=== PATIENT | male | born 1955 | race African-American/Black ===

== ENCOUNTER 2019-08-15 05:43 | Inpatient (IN) | payer BC ==
[2019-08-05 12:07] VITALS: BMI 35.0
[~2019-08-15 05:43] MED LIST: CELECOXIB 200 MG CAPSULE PO ONE; PANTOPRAZOLE 40 MG TABLET (FP) PO ONE; TRANEXAMIC ACID 1000 MG/10 ML VIAL IVPUSH ONE; oxyCODONE HCL 10 MG SUSTAINED ACTING TABLET PO ONE
[2019-08-15] MEDS ORDERED: ONDANSETRON 4 MG/2 ML VIAL IVPUSH PRN ×2 (07:04→11:54)
[2019-08-15] MEDS ORDERED: LACTATED RINGERS SOLUTION 1,000 ML IV SCH ×2 (07:15→12:00)
[2019-08-15] MEDS ORDERED: MIDAZOLAM HCL 2 MG/2 ML SINGLE DOSE VIAL ONE ×3 (07:16→11:57)
[2019-08-15] MEDS ORDERED: DEXAMETHASONE SOD PHOSPHATE/PF 10 MG/ML SDV ONE (07:16)
[2019-08-15] MEDS ORDERED: ceFAZolin SODIUM 1 GM VIAL ONE ×2 (07:19→07:33)
[2019-08-15] MEDS ORDERED: VANCOMYCIN 1,000 MG VIAL (RESTRICTED TO ID ONLY) ONE (07:19)
[2019-08-15] MEDS ORDERED: PROPOFOL 20 ML ONE ×4 (07:30→10:57)
[2019-08-15] MEDS ORDERED: LIDOCAINE HCL/PF 2% SDV 5ML VIAL ONE (07:33)
--- NOTE | 2019-08-15 07:49 | HP ---
Admitting History and Physical - Admission Chief Complaint: Left hip osteoarthritis x years History of Present Illness: 64 year old male presents in regard to his left hip. Longstanding history of left hip osteoarthritis. Patient complains of pain, limited ROM, difficulty ambulating and difficulty completing ADLs. Patient has failed conservative treatment measures including PO medications, injections, activity modification and exercise programs. At this point, patient would like to proceed with surgical intervention - left total hip arthroplasty, MAKOplasty. History Source: Patient - Past Medical History Cardiovascular: Yes: HTN Musculoskeletal: Yes: Osteoarthritis - Past Surgical History Additional Past Surgical History: See written history & physical. - Smoking History Smoking history: Never smoked Have you smoked in the past 12 months: No - Alcohol/Substance Use Hx Alcohol Use: Yes (FEW TIMES PER WEEK) Home Medications - Allergies Allergies/Adverse Reactions: Allergies Allergy/AdvReac Type Severity Reaction Status Date / Time codeine AdvReac Intermediate Rash Verified 07/31/19 17:37 - Home Medications Home Medications: Ambulatory Orders Amlodipine Besylate 5 mg PO DAILY 07/31/19 Diclofenac Sodium 75 mg PO BID 07/31/19 Review of Systems - Review of Systems Musculoskeletal: reports: Decreased ROM (left hip), Joint Pain (left hip) Physical Examination Vital Signs: Vital Signs Temperature 97.8 F 08/15/19 07:00 Pulse Rate 65 08/15/19 07:00 Respiratory Rate 16 08/15/19 07:00 Blood Pressure 144/65 08/15/19 07:00 O2 Sat by Pulse Oximetry (%) 99 08/15/19 07:00 Constitutional: Yes: Well Nourished, No Distress Eyes: Yes: Conjunctiva Clear HENT: Yes: Atraumatic Neck: Yes: Supple Cardiovascular: Yes: Regular Rate and Rhythm Respiratory: Yes: Regular Gastrointestinal: Yes: Soft ...Rectal Exam: Yes: Deferred Musculoskeletal: Yes: Joint Stiffness (left hip), Other (limited ROM left hip) Assessment/Plan 64 year old male presents in regard to his left hip. Longstanding history of left hip osteoarthritis. Patient complains of pain, limited ROM, difficulty ambulating and difficulty completing ADLs. Radiographs reveal severe osteoarthritis of his left hip. Patient has failed conservative treatment measures including PO medications, injections, activity modification and exercise programs. At this point, patient would like to proceed with surgical intervention - left total hip arthroplasty, MAKOplasty. Pros, cons, risks, benefits and alternatives of a left total hip arthroplasty, MAKOplasty was discussed with the patient at length. Patient confirms his understanding and consents to proceed with a left total hip arthoplasty, MAKOplasty.
[2019-08-15] MEDS ORDERED: CEFAZOLIN 2 GM in DEXTROSE 5%-WATER - 50 ML IVPB ONE (08:00)
[2019-08-15] MEDS ORDERED: BUPIVICAINE 0.25%/MORPH PF/KETOROLAC - 51ML DISP.SYRINGE IA ONE ×2 (08:00→10:30)
[2019-08-15] MEDS ORDERED: PHENYLEPHRINE HCL 10 MG/1 ML SINGLE DOSE VIAL ONE (08:58)
[2019-08-15] MEDS ORDERED: ePHEDrine SULFATE 50 MG/1 ML AMPULE ONE (09:26)
[2019-08-15] MEDS ORDERED: KETOROLAC TROMETHAMINE 30 MG/1 ML VIAL ONE (10:48)
[2019-08-15] MEDS ORDERED: ACETAMINOPHEN INJECTION 100 ML IVPB ONE (11:15)
[2019-08-15] MEDS ORDERED: HYDROmorphone HCL CARPU-JECT 1 MG/1 ML DISP.SYRIN IVPUSH PRN (11:49)
--- NOTE | 2019-08-15 11:53 | OP ---
Operative Note - Note: Operative Date: 08/15/19 Pre-Operative Diagnosis: left hip OA Operation: left NICOLE WILLIAM Post-Operative Diagnosis: Same as Pre-op Surgeon: Dio Toro [employer] Prevention Specialist: Erendira Padilla Anesthesia: Spinal Estimated Blood Loss (mls): 250
[2019-08-15] MEDS ORDERED: MAG HYDROX/AL HYDROX/SIMETH 30 ML UNIT-DOSE CUP PO PRN (11:54)
[2019-08-15] MEDS ORDERED: MAGNESIUM HYDROX 2400MG/30ML ORAL SUSPENSION 30 ML CUP PO PRN (11:54)
[2019-08-15] MEDS ORDERED: ACETAMINOPHEN 1000 MG/100 ML VIAL (NON FORMULARY) IVPB ONE ×2 (11:57→12:00)
[2019-08-15] MEDS: MIDAZOLAM HCL 2 MG/2 ML SINGLE DOSE VIAL IVPUSH PRN ×2 (11:58→12:14)
[2019-08-15] MEDS ORDERED: KETOROLAC TROMETHAMINE 30 MG/1 ML VIAL IVPUSH SCH (12:00)
[2019-08-15] MEDS ORDERED: traMADol HCL 50 MG TABLET PO SCH (12:00)
[2019-08-15] MEDS ORDERED: oxyCODONE HCL 5 MG TABLET ONE (12:23)
[2019-08-15] MEDS ORDERED: oxyCODONE HCL 5 MG TABLET PO ONE (13:03)
[2019-08-15] MEDS ORDERED: oxyCODONE HCL 5 MG TABLET PO PRN (13:45)
[2019-08-15] MEDS: amLODIPine BESYLATE 5 MG TABLET (FP) PO SCH (13:57)
[2019-08-15] MEDS: KETOROLAC TROMETHAMINE 30 MG/1 ML VIAL IVPUSH SCH ×2 (16:55→23:30)
[2019-08-15] MEDS: CEFAZOLIN 2 GM/D5W 2 GM/50 ML ML IVPB SCH (17:17)
[2019-08-15] MEDS: traMADol HCL 50 MG TABLET PO SCH (17:46)
[2019-08-15] MEDS ORDERED: DEXAMETHASONE SOD PHOSPHATE 10 MG/1 ML VIAL IVPB ONE (20:00)
[2019-08-15] MEDS: CELECOXIB 200 MG CAPSULE PO SCH (21:11)
[2019-08-15] MEDS: oxyCODONE HCL 10 MG SUSTAINED ACTING TABLET PO SCH (21:11)
[2019-08-15] MEDS: GABAPENTIN 300 MG CAPSULE (FP) PO SCH (21:11)
[2019-08-15] MEDS: SENNOSIDES/DOCUSATE COMBO (SENNA PLUS) TABLET (UD) PO SCH (21:12)
[2019-08-15] MEDS: ASCORBIC ACID 500 MG TABLET (FP) PO SCH (21:12)
[2019-08-16] MEDS: traMADol HCL 50 MG TABLET PO SCH ×4 (00:41→23:48)
[2019-08-16] MEDS: CEFAZOLIN 2 GM/D5W 2 GM/50 ML ML IVPB SCH (02:09)
[2019-08-16] MEDS: KETOROLAC TROMETHAMINE 30 MG/1 ML VIAL IVPUSH SCH (06:12)
[2019-08-16 08:10] LABS: HEMATOCRIT 38.2 % (35.4-49); HEMOGLOBIN 12.7 GM/dl (11.7-16.9); MCH 30.6 pg (25.7-33.7); MCHC 33.2 g/dl (32.0-35.9); MEAN CELL VOLUME 92.1 fl (80-96); MEAN PLT VOLUME 8.6 fl (7.5-11.1); PLATELET COUNT 170 K/MM3 (134-434); RBC 4.14 M/mm3 (4.00-5.60); RDW 12.7 % (11.9-15.9); WHITE BLOOD COUNT 7.8 K/mm3 (4.0-10.8)
[2019-08-16 08:12] LABS: CALCIUM 8.5 mg/dl (8.5-10); CREATININE 1.2 mg/dl (0.55-1.3)
[2019-08-16] MEDS: ASCORBIC ACID 500 MG TABLET (FP) PO SCH ×2 (09:03→21:12)
[2019-08-16] MEDS: PANTOPRAZOLE 40 MG TABLET (FP) PO SCH (09:03)
[2019-08-16] MEDS: amLODIPine BESYLATE 5 MG TABLET (FP) PO SCH (09:04)
[2019-08-16] MEDS: ASPIRIN 325 MG TABLET PO SCH (09:04)
[2019-08-16] MEDS: GABAPENTIN 300 MG CAPSULE (FP) PO SCH ×2 (09:04→21:11)
[2019-08-16] MEDS: MULTIVITAMINS (DAILY MVI) TABLET (FP) PO SCH (09:05)
[2019-08-16] MEDS: CELECOXIB 200 MG CAPSULE PO SCH ×2 (09:05→21:11)
[2019-08-16] MEDS: oxyCODONE HCL 10 MG SUSTAINED ACTING TABLET PO SCH ×2 (09:05→21:11)
[2019-08-16] MEDS: SENNOSIDES/DOCUSATE COMBO (SENNA PLUS) TABLET (UD) PO SCH ×2 (09:07→21:12)
--- NOTE | 2019-08-16 13:49 | PN ---
Progress Note (short form) - Note Progress Note: ANESTHESIA POSTOP 64 YO MALE POD#1 S/P WILLIAM, SPINAL, PNB Patient sitting in chair. Comfortable. Pain well controlled. Tolerating PO VSS, Afebrile Continue current care. Encouraged IS and ambulation with active participation in PT. No anesthetic complications.
--- NOTE | 2019-08-16 13:51 | SPEC ---
DATE OF OPERATION: 08/15/2019 PREOPERATIVE DIAGNOSIS: Left hip osteoarthritis. POSTOPERATIVE DIAGNOSIS: Left hip osteoarthritis. PROCEDURE: Left total hip replacement with MAKOplasty robotic navigation. ATTENDING: Barbara Cueto MD CNC ROUTER OPERATOR: GEOVANNI West ANESTHESIA: Spinal plus sedation. ESTIMATED BLOOD LOSS: 250 mL. COMPLICATIONS: None. DISPOSITION: The patient was transferred to the PACU in stable condition. IMPLANTS USED: Ariel Accolade II size 5 femoral component, Dayana Trident II 54-mm acetabular component with 30- and 25-mm acetabular screws, MDM bipolar head ball and liner with inner ceramic +4-mm offset head ball. INDICATIONS: This is a 64-year-old male who presented to the office complaining of severe left hip pain. He was seen and examined by Dr. Cueto and diagnosed with severe left hip osteoarthritis. The patient was initially treated nonoperatively with injection, medications, and physical therapy but continued to have severe pain and ambulatory dysfunction. He was, therefore, indicated for a left total hip replacement. The risks, benefits, and alternatives to the procedure were explained to the patient in great detail, and he elected to proceed with the procedure. DESCRIPTION OF PROCEDURE: On the day of surgery, the patient was taken to the operating room and placed on the OR table. Spinal anesthesia was administered by the anesthesiologist. The patient was then positioned in the lateral decubitus position on the table and all bony prominences were padded. An axillary roll was placed. The operative hip was then prepped and draped in the usual sterile fashion and intravenous antibiotics were given for infection prophylaxis. A surgical time-out was then performed with the team, and the patients identity, procedure, side, availability of implants, and the administration of antibiotics were confirmed. An approximately 15-cm longitudinal incision was made through the skin centered on the greater trochanter of the hip. This dissection was carried down through the subcutaneous tissues to the deep fascia. This fascia was then incised and a Cobra was placed around the inferior femoral neck. Electrocautery was used to reflect the anterior 40% of the gluteus medius and minimus starting at the musculotendinous junction and leaving a cuff for closure. This was reflected to reveal the capsule of the hip joint. An anterior capsulectomy was performed and the femoral head and neck were visualized. Grade 4 changes were noted diffusely throughout the joint. At this point, three small stab incisions were made superior to the main incision along the iliac crest. Three self-drilling Steinmann pins were then placed and the Triptease pelvic array was attached. Reference points on the limb were then entered into the robotic device and the limb length deficiency, offset, and femoral neck resection level were then calculated by the software. The hip was then dislocated with traction and external rotation. An oscillating saw was used to make the femoral neck cut at the level previously templated, and the femoral head was removed. Attention was then turned to the acetabulum. Retractors were then placed around the acetabulum and the labrum was removed. An acetabular checkpoint pin and the Triptease software were used to register the contours of the acetabulum. The acetabulum was then reamed in a single stage to the preoperatively templated size using the Triptease robotic arm. The appropriately sized cup was then impacted and had solid fixation as well as the preset inclination and version of 40 and 20 degrees, respectively. A polyethylene liner was then placed in the cup. Attention was then turned back to the femur, which was externally rotated for improved visualization. A femoral neck elevator was used to present the femoral neck cut, a box osteotome was used to enter the femoral canal, and a canal finder was used to go down the femoral shaft. The Kory broaches were used sequentially until the optimal scratch fit was achieved. This correlated with the preoperatively templated size. From here, several different offset head and neck configurations were tested until excellent stability and length were obtained. These measurements were quantified using the Triptease software. All trial components were then removed, the femur was copiously irrigated, and the final components were placed. After final implants were placed, a 3-minute dilute Betadine lavage was performed. Following this, the wound was irrigated with normal saline containing 1 g of Ancef per 1 L of irrigant with a total of 3 L. Once this was completed, wound closure was begun. Leg length and stability were checked again and found to be excellent. Irrigation was performed again. Wound closure was started by repairing the abductor muscles with a no. 2 FiberWire stitch in a Krackow configuration passed through bone tunnels in the greater trochanter and tied over a bony bridge. This repair was then reinforced with a 0 V-Loc 180 barbed suture. Next, no. 1 Polysorb and 0 V-Loc 180 were used to close the fascia. The deep subcutaneous tissue was closed with no. 1 Polysorb sutures, and 2-0 Polysorb was used for the superficial subcutaneous tissue. The skin was closed using both 3-0 V-Loc 90 suture in a running subcuticular fashion and SwiftSet skin adhesive. The Kory array and pins were removed from the iliac crest and the stab incision sites were irrigated and closed with 4-0 Polysorb sutures and SwiftSet skin adhesive. Once this was completed, a sterile dressing was applied. The patient was then awakened and taken to the PACU in stable condition. BARBARA CUETO M.D. [id number]
--- NOTE | 2019-08-16 19:19 | PN ---
Progress Note (short form) - Note Progress Note: Pt seen and examined Monday evening. Doing well AVSS Selected Entries 08/16/19 18:00 Temperature 98.9 F Pulse Rate 73 Respiratory 16 Rate Blood Pressure 130/72 O2 Sat by Pulse 96 Oximetry (%) Laboratory Tests 08/16/19 08/16/19 07:20 07:20 WBC 7.8 Hgb 12.7 Hct 38.2 Plt Count 170 Sodium 131 L Potassium 4.0 Chloride 102 Carbon Dioxide 22 Anion Gap 7 L BUN 28.0 H Creatinine 1.2 Est GFR (CKD-EPI)AfAm 72.59 Est GFR (CKD-EPI)NonAf 62.63 Random Glucose 142 H Calcium 8.5 Gen: NAD LLE: c/d/i, NVID A/P POD#1 s/p L WILLIAM PT/OOB D/C home in AM
--- NOTE | 2019-08-16 19:20 | DS ---
Physical Examination Vital Signs: Vital Signs Temperature 98.0 F 08/16/19 14:04 Pulse Rate 70 08/16/19 14:04 Respiratory Rate 18 08/16/19 14:04 Blood Pressure 141/72 08/16/19 14:04 O2 Sat by Pulse Oximetry (%) 98 08/16/19 14:04 Labs: CBC, BMP 08/16/19 07:20 08/16/19 07:20 Discharge Summary Problems reviewed: Yes Reason For Visit: LEFT HIP OSTEOARTHRITIS Current Active Problems Osteoarthritis of left hip (Acute) Procedures: Principal: left riley WILLIAM Hospital Course: Admitted for elective surgery. Procedure performed without complications. Pt received postoperative antibiotic prophylaxis and DVT ppx. Ambulated with physical therapy. Stable for discharge home with outpatient followup. Condition: Stable - Instructions Diet, Activity, Other Instructions: Dr Toro - Hip Replacement Instructions Keep the Aquacel dressing on until removed by Dr. Toro in 10-14 days - it is antibacterial and waterproof and you can shower with it on. Call the office for a follow-up appointment with Dr. Toro in 10-14 days. [phone] Take one Aspirin 325mg daily for 6 weeks to prevent blood clots in your legs. Take one Pantoprazole 40mg daily for 6 weeks to protect against heartburn and ulcers. Take Cephalexin (antibiotic) 3x/day for 10 days to help prevent skin infection. Take Celebrex 200mg twice daily for 30 days to reduce swelling and inflammation. Take a multivitamin, stool softener and extra Vitamin C supplement daily. For pain: *Mild pain (1-3/10): Take 1 Tramadol tablet every 4 hours as needed. Moderate pain (4-6/10): Take 1 Tramadol tablet and 1 Percocet tablet every 4 hours as needed. Severe pain (7-10/10): Take 1 Tramadol tablet and 2 Percocet tablets every 4 hours as needed. Activity: You can put as much weight on the operative leg as you want. For the first 6 weeks, all you need to do is walk around the house, go up/down stairs, and sit down/get up. After 6 weeks when everything is healed (and bone has grown into the implant) you will be sent for more intensive outpatient physical therapy. Always use a walker or cane for balance and to prevent falls. Expect to see swelling / bruising from the operative site all the way down to your toes. Wear the Compression stocking on the operative side during the day to minimize how much swelling there is in your foot/ankle. Don't wear the stocking at night. You don't have to wear the stocking on the other side. Disposition: VNS/HOME HEALTH CARE - Home Medications Comprehensive Discharge Medication List: Ambulatory Orders Amlodipine Besylate 5 mg PO DAILY 07/31/19 Ascorbic Acid [Vitamin C -] 500 mg PO BID tablet 08/16/19 Aspirin [ASA -] 325 mg PO DAILY@0800 tablet 08/16/19 Celecoxib [CeleBREX -] 200 mg PO BID #60 capsule 08/16/19 Cephalexin Monohydrate [Keflex -] 500 mg PO TID #30 capsule 08/16/19 Multivitamins [Multivit ([facility] Formulary)] 1 tab PO DAILY tab 08/16/19 Oxycodone HCl/Acetaminophen [Percocet 5-325 mg Tablet] 1 - 2 tab PO Q4H PRN #60 tablet MDD 10 08/16/19 Pantoprazole Sodium [Protonix -] 40 mg PO DAILY #40 tablet.ec 08/16/19 Sennosides/Docusate Sodium [Pericolace -] 2 tablet PO BID tablet 08/16/19 traMADol HCL [Ultram -] 50 mg PO Q4H PRN #42 tablet MDD 6 08/16/19
[2019-08-17] MEDS: traMADol HCL 50 MG TABLET PO SCH (06:24)
[2019-08-17] MEDS: ASPIRIN 325 MG TABLET PO SCH (08:18)
[2019-08-17 08:40] LABS: HEMATOCRIT 36.8 % (35.4-49); HEMOGLOBIN 12.3 GM/dl (11.7-16.9); MCH 30.6 pg (25.7-33.7); MCHC 33.3 g/dl (32.0-35.9); MEAN PLT VOLUME 9.2 fl (7.5-11.1); PLATELET COUNT 153 K/MM3 (134-434); RDW 12.6 % (11.9-15.9); WHITE BLOOD COUNT 9.6 K/mm3 (4.0-10.8)
[2019-08-17 10:17] VITALS: BP 130/66; PULSE 74; TEMP 99
[2019-08-17] MEDS: GABAPENTIN 300 MG CAPSULE (FP) PO SCH (10:19)
[2019-08-17] MEDS: amLODIPine BESYLATE 5 MG TABLET (FP) PO SCH (10:19)
[2019-08-17] MEDS: MULTIVITAMINS (DAILY MVI) TABLET (FP) PO SCH (10:19)
[2019-08-17] MEDS: PANTOPRAZOLE 40 MG TABLET (FP) PO SCH (10:19)
[2019-08-17] MEDS: SENNOSIDES/DOCUSATE COMBO (SENNA PLUS) TABLET (UD) PO SCH (10:20)
[2019-08-17] MEDS: oxyCODONE HCL 10 MG SUSTAINED ACTING TABLET PO SCH (10:20)
[2019-08-17] MEDS: CELECOXIB 200 MG CAPSULE PO SCH (10:20)
[2019-08-17] MEDS: ASCORBIC ACID 500 MG TABLET (FP) PO SCH (10:20)
--- NOTE | 2019-08-21 16:07 | PATH ---
Surgical Pathology Report Patient Name: JOSE A LANE Med. Rec. #: [id number] /Age/Gender: 1955 (Age: 64) / M Account: [id number] Location: [facility] Taken: 08/15/2019 Received: 08/15/2019 Reported: 08/21/2019 Physicians: Dio Toro M.D. Specimen(s) Received LEFT FEMORAL HEAD Clinical History Left hip osteoarthritis Final Diagnosis FEMORAL HEAD, LEFT, TOTAL HIP REPLACEMENT: DEGENERATIVE JOINT DISEASE Electronically Signed Luda Lo M.D. Gross Description Received in formalin, labeled "left femoral head," is a 5.3 x 4.5 x 2.6 cm. femoral head with a 0.6 cm portion of femoral neck. The margin of resection is smooth. The articular surface shows areas of eburnation. The remaining articular surface is granular. The underlying trabecular bone is yellow and hard. A motor vehicle representative section is submitted in one cassette, following decalcification.
== END 2019-08-17 11:51 | disposition home health service (06) | DRG 470 ==
LOC: FM/S 05:43
PROVIDERS: ADMIT Student in an Organized Health Care Education/Training Program; ATTEND Student in an Organized Health Care Education/Training Program
PROC: 8E0W0CZ Robotic Assisted Procedure of Trunk Region, Open Approach (ICD-10-PCS; 2019-08-15)
PROC: 0SRB03A Replacement of Left Hip Joint with Ceramic Synthetic Substitute, Uncemented, Open Approach (ICD-10-PCS; principal; 2019-08-15 09:03)
DX: M16.12 Unilateral primary osteoarthritis, left hip (principal); I10 Essential (primary) hypertension
CPT/HCPCS: 36415; 73502-TC-LT-FY; 80048; 85027; 88305-TC; 88311-TC; 94760; 97116-GP; 97163-GP; J0131; J1100